=== PATIENT | female | born 1990 | race Caucasian/White ===

== ENCOUNTER → 2017-08-26 | Outpatient (CLI) | payer OTHER ==
[2017-08-26 10:56] LABS: MEAN CORPUSCULAR HGB CONC 32.3 g/dl (32.0-36.5); MEAN CORPUSCULAR VOLUME 86.8 fl (80.0-96.0); PLATELET COUNT, AUTOMATED 272 10^3/uL (150-450); RED CELL DISTRIBUTION WIDTH 13.8 % (11.5-14.5); WHITE BLOOD COUNT 6.6 10^3/uL (4.0-10.0)
[2017-08-26 11:25] LABS: ALBUMIN 3.4 GM/DL (3.2-5.2); ALBUMIN/GLOBULIN RATIO 0.79 (1.00-1.93); ALKALINE PHOSPHATASE 83 U/L (45-117); ALT/SGPT 24 U/L (12-78); ANION GAP 6 MEQ/L (8-16); AST/SGOT 13 U/L (7-37); BILIRUBIN,TOTAL 0.6 MG/DL (0.2-1.0); BLOOD UREA NITROGEN 9 MG/DL (7-18); CALCIUM LEVEL 8.8 MG/DL (8.5-10.1); CARBON DIOXIDE LEVEL 30 MEQ/L (21-32); CHLORIDE LEVEL 105 MEQ/L (98-107); CHOLESTEROL LEVEL 147 MG/DL (<200); CREATININE FOR GFR 0.82 MG/DL (0.55-1.02); FERRITIN 22 NG/ML (8-252); GLOMERULAR FILTRATION RATE > 60.0 (>60); GLUCOSE, FASTING 91 MG/DL (70-105); PERCENT SATURATION 25.9 % (13.2-45.0); POTASSIUM SERUM 4.2 MEQ/L (3.5-5.1); SODIUM LEVEL 141 MEQ/L (136-145); TOTAL IRON BINDING CAPACITY 274 UG/DL (250-450); TOTAL PROTEIN 7.7 GM/DL (6.4-8.2); TRIGLYCERIDES LEVEL 137 MG/DL (<150)
== END ==
LOC: M LAB 09:45
PROVIDERS: ATTEND Family Medicine
DX: E61.1 Iron deficiency (principal); E11.9 Type 2 diabetes mellitus without complications

== ENCOUNTER → 2017-09-01 | Outpatient (CLI) | payer OTHER ==
--- NOTE | 2017-09-01 13:51 | REP ---
Left knee six views : There is no fracture or dislocation. Mineralization and joint spaces are normal. There are no calcifications or foreign bodies. Impression: Negative left knee . Signed by Duarte Silva MD 09/01/2017 01:43 P
== END ==
LOC: M WUC 11:53
PROVIDERS: ATTEND Family Medicine
DX: M25.562 Pain in left knee (principal)

== ENCOUNTER → 2018-09-21 | Outpatient (CLI) | payer OTHER ==
[2018-09-21 10:33] LABS: BASO % 0.4 % (0.0-1.0); EOS # 0.1 10^3/uL (0.0-0.50); EOS % 0.9 % (0.0-3.0); HEMATOCRIT 38.4 % (36.0-47.0); HEMOGLOBIN 12.6 g/dl (12.0-15.5); LYMPH # 2.2 10^3/uL (1.5-6.5); MEAN CORPUSCULAR HGB CONC 32.8 g/dl (32.0-36.5); MEAN CORPUSCULAR VOLUME 88.3 fl (80.0-96.0); MONO # 0.4 10^3/uL (0.0-0.8); MONO % 6.5 % (0.0-5.0); NEUTROPHILS % 59.1 % (36.0-66.0); PLATELET COUNT, AUTOMATED 297 10^3/uL (150-450); RED BLOOD COUNT 4.35 10^6/uL (4.00-5.40); WHITE BLOOD COUNT 6.8 10^3/uL (4.0-10.0)
[2018-09-21 11:05] LABS: ALBUMIN 3.3 GM/DL (3.2-5.2); ALT/SGPT 36 U/L (12-78); BILIRUBIN,TOTAL 0.7 MG/DL (0.2-1.0); BLOOD UREA NITROGEN 9 MG/DL (7-18); CALCIUM LEVEL 8.7 MG/DL (8.5-10.1); CARBON DIOXIDE LEVEL 29 MEQ/L (21-32); CHLORIDE LEVEL 103 MEQ/L (98-107); CHOLESTEROL LEVEL 187 MG/DL (<200); CHOLESTEROL RISK RATIO 4.921 (<5); CREATININE FOR GFR 0.82 MG/DL (0.55-1.30); FERRITIN 28 NG/ML (8-252); FREE T3 3.1 PG/ML (2.2-4.0); FREE T4 1.12 NG/DL (0.76-1.46); GLOMERULAR FILTRATION RATE > 60.0 (>60); GLUCOSE, FASTING 105 MG/DL (70-100); HDL CHOLESTEROL 38 MG/DL (>40); IRON (FE) 56 UG/DL (50-170); LDL CHOLESTEROL 126 MG/DL (<100); NON-HDL-C 149 MG/DL; PERCENT SATURATION 20.9 % (13.2-45.0); POTASSIUM SERUM 3.9 MEQ/L (3.5-5.1); SODIUM LEVEL 139 MEQ/L (136-145); TOTAL IRON BINDING CAPACITY 268 UG/DL (250-450); TOTAL PROTEIN 7.5 GM/DL (6.4-8.2); TRIGLYCERIDES LEVEL 114 MG/DL (<150)
[2018-09-21 11:09] LABS: HEMOGLOBIN A1c 5.4 %
== END ==
LOC: M LAB 09:48
PROVIDERS: ATTEND Family Medicine
DX: E61.1 Iron deficiency (principal); E03.9 Hypothyroidism, unspecified; E11.9 Type 2 diabetes mellitus without complications

== ENCOUNTER → 2019-01-13 | Outpatient (REF) | payer OTHER | LOC: M SFHCWAGY 14:01 | PROVIDERS: ATTEND Nurse Practitioner Women's Health | DX: Z12.4 Encounter for screening for malignant neoplasm of cervix (principal) ==

== ENCOUNTER → 2019-02-14 | Outpatient (REF) | payer OTHER ==
[2019-02-14 16:30] LABS: BLOOD UREA NITROGEN 8 MG/DL (7-18); CARBON DIOXIDE LEVEL 32 MEQ/L (21-32); CHLORIDE LEVEL 103 MEQ/L (98-107); CREATININE FOR GFR 0.83 MG/DL (0.55-1.30); GLOMERULAR FILTRATION RATE > 60.0 (>60); GLUCOSE, FASTING 122 MG/DL (70-100); POTASSIUM SERUM 3.9 MEQ/L (3.5-5.1); SODIUM LEVEL 139 MEQ/L (136-145)
== END ==
LOC: M SFHCWAGY 13:24
PROVIDERS: ATTEND Nurse Practitioner Women's Health
DX: Z01.812 Encounter for preprocedural laboratory examination (principal)

== ENCOUNTER → 2019-02-15 | Outpatient (CLI) | payer OTHER | LOC: M RAD 09:55 | PROVIDERS: ATTEND Nurse Practitioner Women's Health | DX: Z15.01 Genetic susceptibility to malignant neoplasm of breast (principal) ==

== ENCOUNTER → 2019-03-14 | Outpatient (CLI) | payer OTHER ==
--- NOTE | 2019-03-14 14:25 | REPMRS ---
Patient History The patient states she had a clinical breast exam in 01/2019. Baseline Mammogram Patient is nulliparous. Family history of endometrial cancer at age 50 or over in paternal aunt, pancreatic cancer at age 61 in paternal uncle, breast cancer at age 65 in paternal aunt, colorectal cancer at age 56 in paternal aunt, endometrial cancer at age 23 in paternal aunt, breast cancer in maternal grandmother, breast cancer at age 59 in mother, breast cancer at age 45 in maternal aunt. Digital Woman Screen Mammo: March 14, 2019 - Exam #: [id number] Bilateral CC and MLO view(s) were taken. Technologist: Faye Parmar, Technologist No prior studies available for comparison. FINDINGS: The breast tissue is almost entirely fat. There is an asymmetric density at approximate 12 o'clock in the left breast. On the tomography and standard mammographic views, a portion of this shows spiculated margin. This area merits further evaluation. There is no other evidence of dominant mass, architectural distortion, or clustered microcalcification typical of malignancy. 3-D tomosynthesis shows no additional findings. Assessment: BI-RADS/ACR category 0 mammogram, Incomplete: Need additional imaging evaluation and/or prior mammograms for comparison. Recommendation Ultrasound and special view mammogram of the left breast. This patient's Lifetime Breast Cancer RIsk is estimated at 37.3 %. Annual screening Breast MRI scanniing is recommended for patient's whose lifetime risk assessment is over 20%. This mammogram was interpreted with the aid of an FDA-approved computer-aided dectection system. Electronically Signed By: Jame Dominguez MD 03/14/19 [id number]
== END ==
LOC: M WHC 11:14
PROVIDERS: ATTEND Nurse Practitioner Women's Health
DX: Z12.31 Encounter for screening mammogram for malignant neoplasm of breast (principal); Z15.01 Genetic susceptibility to malignant neoplasm of breast; Z80.3 Family history of malignant neoplasm of breast

== ENCOUNTER → 2019-03-16 | Outpatient (CLI) | payer OTHER ==
--- NOTE | 2019-03-16 16:51 | REP ---
Digital diagnostic unilateral left breast mammography with CAD and focused left breast sonography: History: Screening mammography from March 14, 2019 was BIRADS category 0 because of an asymmetric density with spiculated margins at approximately 12 o'clock position in the left breast. Diagnostic imaging was recommended. The patient reports a positivity for a genetic susceptibility marker for malignancy. Positive family history. Elevated Tyrer Cuzick score 37.3% lifetime breast cancer risk assessment. Mammographic findings: Magnified focal spot compression CC, MLO, and mediolateral views of the left breast confirm the presence of an ill-defined asymmetric density at approximately 12 o'clock in the left breast spanning roughly 3.7 cm in greatest diameter. No other suspicious mammographic findings. Sonographic findings: The left breast is scanned from 11 o'clock to 1 o'clock. Fairly homogeneous fibroglandular background echotexture is seen. No sonographically suspicious finding. Impression: BIRADS category is felt to be best assigned as category 4 suspicious left breast imaging. Irregular asymmetric density 12 o'clock position left breast with 3-D tomography showing somewhat spiculated margins. Histologic sampling is recommended. Stereotactic needle biopsy is recommended. BIRADS 4: BI-RADS/ACR category 4 mammogram. Suspicious Abnormality - biopsy should be considered. This mammogram was interpreted with the aid of an FDA-approved computer-aided detection system. The patient states she had a clinical breast exam in January 2019. The patient letter being requested is m#4. This patient's estimated Tyrer-Cuzick lifetime risk assessment for the breast cancer is 37%. Enhanced screening in the form of annual bilateral breast MRI scanning is warranted. Bilateral breast MRI scanning is recommended annually, beginning 6 months from now. . . Electronically Signed by Alessandro Dominguez MD 03/17/2019 07:57 A
== END ==
LOC: M RAD 13:49
PROVIDERS: ATTEND Nurse Practitioner Women's Health
DX: R92.2 Inconclusive mammogram (principal); Z15.01 Genetic susceptibility to malignant neoplasm of breast; Z80.3 Family history of malignant neoplasm of breast

== ENCOUNTER → 2019-04-03 | Outpatient (CLI) | payer OTHER ==
[~2019-04-03] MED LIST: AMIT25TA PO; CVS1CHW13 PO; LEVO88TA3 PO; LIDOCAINE 1% MDV 20ML VIAL As Ordered ONE; PROBCAP17 PO
--- NOTE | 2019-04-03 14:28 | REP ---
POSTBIOPSY MAMMOGRAM, LEFT BREAST: Postbiopsy mammogram, left breast performed in the ML and CC projections following stereotactic biopsy of a spiculated density in the upper left breast. A metallic clip is seen at the site of the biopsy. This corresponds to the region of the abnormality seen on the prior mammograms performed 03/14/2019 and 03/16/2019. Electronically Signed by Duarte Chamorro MD 04/03/2019 04:36 P
[2019-04-03 15:15] VITALS: BP 133/66
--- NOTE | 2019-04-03 16:44 | REP ---
Stereotactic breast biopsy. This procedure is performed by ANA Hunt, under the personal supervision of Dr. Chamorro. The patient has a history of an asymmetric density at approximately 12 o'clock in the left breast on the mammogram dated 03/14/2019. The risks and benefits of the procedure were explained to the patient and informed consent was obtained both verbally and written. Directly prior to the start of the procedure, a formal timeout was done in the procedure room. The lateral medial approach was utilized. The calcifications were localized using stereotactic mammographic guidance. 4 ml of 1% lidocaine was used as a local anesthetic. And 8-gauge, suction assisted Mammotome needle was inserted and 7 core biopsy samples were obtained. Specimen radiograph demonstrate the presence of microcalcifications to be within the specimen. A marker clip was placed at the biopsy site. The needle was removed and homeostasis was achieved. The patient tolerated the procedure well and there were no immediate complications. After the appropriate amount of monitored convalescence, the patient was discharged from the department. Impression: Technically successful stereotactic breast biopsy Reviewed by ANA Razo 04/03/2019 02:56 P Electronically Signed by Duarte Chamorro MD 04/03/2019 04:35 P
== END ==
LOC: M IRPRO 12:23
PROVIDERS: ATTEND Physician Assistant
DX: N63.20 Unspecified lump in the left breast, unspecified quadrant (principal)

== ENCOUNTER → 2019-10-23 | Outpatient (CLI) | payer OTHER ==
[~2019-10-23] MED LIST changes: -LIDOCAINE 1% MDV 20ML VIAL As Ordered ONE
[2019-10-23 09:13] LABS: HEMATOCRIT 40.4 % (36.0-47.0); HEMOGLOBIN 12.9 g/dl (12.0-15.5); MEAN CORPUSCULAR HEMOGLOBIN 28.4 pg (27.0-33.0); MEAN CORPUSCULAR HGB CONC 31.9 g/dl (32.0-36.5); MEAN CORPUSCULAR VOLUME 88.8 fl (80.0-96.0); PLATELET COUNT, AUTOMATED 294 10^3/uL (150-450); RED BLOOD COUNT 4.55 10^6/uL (4.00-5.40); WHITE BLOOD COUNT 7.6 10^3/uL (4.0-10.0)
[2019-10-23 09:43] LABS: ALBUMIN 3.5 GM/DL (3.2-5.2); ALT/SGPT 33 U/L (12-78); BILIRUBIN,TOTAL 0.7 MG/DL (0.2-1.0); BLOOD UREA NITROGEN 6 MG/DL (7-18); CALCIUM LEVEL 8.5 MG/DL (8.5-10.1); CARBON DIOXIDE LEVEL 26 MEQ/L (21-32); CHLORIDE LEVEL 106 MEQ/L (98-107); CHOLESTEROL LEVEL 159 MG/DL (<200); CHOLESTEROL RISK RATIO 4.818 (<5); CREATININE FOR GFR 0.86 MG/DL (0.55-1.30); FREE T3 2.7 PG/ML (2.2-4.0); FREE T4 1.33 NG/DL (0.76-1.46); GLOMERULAR FILTRATION RATE > 60.0 (>60); GLUCOSE, FASTING 108 MG/DL (70-100); HDL CHOLESTEROL 33 MG/DL (>40); LDL CHOLESTEROL 95 MG/DL (<100); NON-HDL-C 126 MG/DL; POTASSIUM SERUM 4.1 MEQ/L (3.5-5.1); SODIUM LEVEL 140 MEQ/L (136-145); TOTAL PROTEIN 7.9 GM/DL (6.4-8.2); TRIGLYCERIDES LEVEL 157 MG/DL (<150)
== END ==
LOC: M LAB 08:21
PROVIDERS: ATTEND Family Medicine
DX: E03.9 Hypothyroidism, unspecified (principal); E11.9 Type 2 diabetes mellitus without complications

== ENCOUNTER → 2019-12-01 | Outpatient (CLI) | payer OTHER ==
--- NOTE | 2019-12-01 10:09 | REP ---
Digital diagnostic unilateral left breast mammography with CAD, 3-D tomography, and focused left breast sonography. History: Lump in the left breast at 12 o'clock position. The patient stated she could not feel this. The patient is status post stereotactic needle biopsy procedure for asymmetric density left breast in April 03, 2019. This produced histologic diagnosis of benign fibrocystic tissue. Comparison mammography March 14, 2019, March 16, 2019, and April 03, 2019. Comparison sonography March 16, 2019. Mammographic findings: There is an asymmetric density again noted at 12 o'clock position in the left breast. There is a marker clip centrally located in this asymmetric density from the previous biopsy. There is a small nodule surrounding the marker clip and there is some adjacent linear fibrotic reaction. The study post biopsy on April 03, 2019 showed a 2 cm hematoma at the biopsy site. The asymmetric density appears a little more prominent mammographically but this is likely due to post biopsy fibrotic changes. No mass-like properties or definite spiculation is seen. The remainder of the left breast parenchyma is unremarkable and unchanged. Sonographic findings: Sonography in the 12 o'clock position of the left breast visualizes the previously placed clip. There is an anechoic cylindrical shaped area adjacent to the clip consistent with the biopsy site and postbiopsy hematoma seroma. This measures 9 x 3 mm. No other sonographic findings. Impression: BIRADS 2: BI-RADS/ACR category 2 mammogram. Benign Findings. The previously biopsied benign asymmetric density at 12 o'clock position in the left breast is again seen with post biopsy changes visible both sonographically and mammographically. BIRADS category 2 benign findings. Clinical followup is advised. This mammogram was interpreted with the aid of an FDA-approved computer-aided detection system. The patient states she had a clinical breast exam in November 2019. This [facility]'s [facility] for breast cancer is 37.[facility] %. Enhanced screening in the form of annual bilateral breast MRI scanning is warranted. Bilateral breast MRI scanning is recommended annually, beginning 6 months from now.
== END ==
LOC: M WHC 07:37
PROVIDERS: ATTEND Surgery
DX: N63.20 Unspecified lump in the left breast, unspecified quadrant (principal); M96.840 Postprocedural hematoma of a musculoskeletal structure following a musculoskeletal system procedure
CPT/HCPCS: 76642; 77065; G0279

== ENCOUNTER → 2020-02-01 | Outpatient (CLI) | payer OTHER ==
[~2020-02-01] MED LIST changes: +ULTR50TA8 PO
--- NOTE | 2020-02-01 08:02 | REP ---
CHEST X-RAY: Two views. HISTORY: Encounter for preprocedural exam. No comparison chest x-ray. FINDINGS: The lungs are symmetrically aerated and clear. Pleural angles are sharp. Heart is not enlarged. Pulmonary vasculature is not increased. There is a levoconvex curvature in the lower thoracic spine. No other bony abnormality is seen. IMPRESSION: Thoracic scoliotic curvature. Otherwise no active disease. Electronically Signed by Alessandro Dominguez MD 02/01/2020 08:43 A
[2020-02-01 08:03] LABS: HEMATOCRIT 39.7 % (36.0-47.0); MEAN CORPUSCULAR HEMOGLOBIN 28.8 pg (27.0-33.0); MEAN CORPUSCULAR HGB CONC 32.7 g/dl (32.0-36.5); MEAN CORPUSCULAR VOLUME 87.8 fl (80.0-96.0); PLATELET COUNT, AUTOMATED 322 10^3/uL (150-450); RED BLOOD COUNT 4.52 10^6/uL (4.00-5.40); WHITE BLOOD COUNT 8.1 10^3/uL (4.0-10.0)
[2020-02-01 08:17] LABS: ALBUMIN 3.2 GM/DL (3.2-5.2); ALT/SGPT 36 U/L (12-78); BILIRUBIN,TOTAL 0.8 MG/DL (0.2-1.0); BLOOD UREA NITROGEN 10 MG/DL (7-18); CALCIUM LEVEL 8.8 MG/DL (8.5-10.1); CARBON DIOXIDE LEVEL 30 MEQ/L (21-32); CHLORIDE LEVEL 103 MEQ/L (98-107); GLOMERULAR FILTRATION RATE > 60.0 (>60); GLUCOSE, FASTING 104 MG/DL (70-100); POTASSIUM SERUM 3.7 MEQ/L (3.5-5.1); SODIUM LEVEL 138 MEQ/L (136-145); TOTAL PROTEIN 8.1 GM/DL (6.4-8.2)
--- NOTE | 2020-02-01 18:13 | ECGEPIP ---
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
== END ==
LOC: M LAB 07:16
PROVIDERS: ATTEND Family Medicine
DX: Z01.818 Encounter for other preprocedural examination (principal)

== ENCOUNTER → 2020-02-08 | Outpatient (CLI) | payer OTHER ==
[2020-02-08 14:19] VITALS: BP 110/74
--- NOTE | 2020-02-09 11:52 | REP ---
STEREOTACTIC NEEDLE LOCALIZATION PROCEDURE WITH HYDROMARK CLIP PLACEMENT LEFT BREAST AND DIGITAL DIAGNOSTIC UNILATERAL LEFT BREAST MAMMOGRAPHY CLIP PLACEMENT VIEWS: HISTORY: Left breast mass. Comparison mammography December 01, 2019. STEREOTACTIC NEEDLE BIOPSY PROCEDURE: Informed consent and the localization portion of the procedure were performed by ANA Moncada. The patient was positioned on the prone stereotactic biopsy table and the left breast was positioned and compressed in the craniocaudal projection. The previously placed metallic needle biopsy marker clip was localized stereotactically and a HydroMARK needle was introduced under local anesthetic and aseptic precautions into the left breast. After stereotactic imaging, the HydroMARK was deployed and post deployment stereotactic imaging was performed. The patient tolerated the procedure well. True MLO and CC mammographic digital views are obtained post clip placement. The new HydroMARK clip is seen at 12-o'clock position in the left breast along the superficial margin of the mammographic opacity. The original metallic clip marker is 1 cm deep to the mammographic opacity. No hematoma is seen. IMPRESSION: HydroMARK clip in good position relative to the density in the left breast.
== END ==
LOC: M WHCPRO 09:26
PROVIDERS: ATTEND Surgery
DX: N63.20 Unspecified lump in the left breast, unspecified quadrant (principal)

== ENCOUNTER → 2020-02-10 | Outpatient (CLI) | payer OTHER | LOC: M LABSMTC 08:31 | PROVIDERS: ATTEND Anesthesiology | DX: Z01.818 Encounter for other preprocedural examination (principal); Z11.59 Encounter for screening for other viral diseases ==

== ENCOUNTER 2020-02-13 07:19 | Day surgery (SDC) | payer OTHER ==
[~2020-02-13] VITALS: Ht 167.6 cm; Wt 155.1 kg
[~2020-02-13 07:19] MED LIST changes: -ULTR50TA8 PO
[2020-02-13] MEDS ORDERED: fentaNYL 100 MCG/2 ML INJECTION (J3010) As Ordered ONE ×3 (08:23→11:50)
[2020-02-13] MEDS ORDERED: LIDOCAINE 2% 100MG/5ML SDV (FOR ANES.) As Ordered ONE (08:23)
[2020-02-13] MEDS ORDERED: propofoL 200 MG/20 ML VIAL As Ordered ONE (08:23)
[2020-02-13] MEDS ORDERED: MIDAZOLAM INJ 2MG/2ML VIAL (J2250 PER 1MG) As Ordered ONE (08:24)
[2020-02-13] MEDS ORDERED: ceFAZolin SOD 2 GM in IV 1 EA IV ONE (08:30)
[2020-02-13] MEDS ORDERED: NS 1,000 ML IV ONE (08:45)
[2020-02-13] MEDS ORDERED: HEPARIN SOD (PORCINE) 5000UNITS/ML VIAL (J1644 PER 1000UNITS) SQ ONE (08:45)
[2020-02-13] MEDS ORDERED: ceFAZolin SOD 1 GM in D5W MINI-BAG PLUS 50 ML IV ONE (09:10)
[2020-02-13] MEDS ORDERED: BUPIVACAINE HCL 0.25% 30ML VIAL As Ordered ONE (09:24)
[2020-02-13] MEDS ORDERED: LIDOCAINE 1% SDV 30ML VIAL As Ordered ONE (09:24)
[2020-02-13] MEDS ORDERED: SCOPOLAMINE 1MG TRANSDERMAL PATCH As Ordered ONE (09:34)
[2020-02-13] MEDS ORDERED: SCOPOLAMINE 1MG TRANSDERMAL PATCH TOP ONE ×2 (09:45→12:45)
[2020-02-13] MEDS ORDERED: LR 1,000 ML IV ONE (09:45)
[2020-02-13] MEDS ORDERED: DESFLURANE 240 ML INHALANT As Ordered ONE (10:10)
[2020-02-13] MEDS ORDERED: ACETAMINOPHEN 1000MG 100ML IV BTL (OFIRMEV) (J0131 PER 10MG) As Ordered ONE (10:15)
[2020-02-13] MEDS ORDERED: KETOROLAC 60 MG/2 ML VIAL As Ordered ONE (10:15)
[2020-02-13] MEDS ORDERED: ONDANSETRON 4MG/2ML VIAL As Ordered ONE (10:15)
[2020-02-13] MEDS ORDERED: diphenhydrAMINE 50MG/ML VIAL (J1200) As Ordered ONE (10:15)
[2020-02-13] MEDS ORDERED: METOCLOPRAMIDE INJ 10MG/2ML VIAL (J2765 PER 1) As Ordered ONE (10:15)
[2020-02-13] MEDS ORDERED: ULTR50TA8 PO (12:22)
[2020-02-13] MEDS ORDERED: HYDROMORPHONE HCL 0.5 MG/ 0.5 ML SYRINGE (J1170 PER 1) IV PRN (12:45)
[2020-02-13] MEDS ORDERED: fentaNYL 100 MCG/2 ML INJECTION (J3010) IV PRN (12:45)
[2020-02-13] MEDS ORDERED: LR 1,000 ML IV SCH (12:45)
[2020-02-13] MEDS ORDERED: ONDANSETRON 4MG/2ML VIAL IV PRN (12:45)
[2020-02-13] MEDS ORDERED: oxyCODONE 5MG TAB PO PRN (12:45)
--- NOTE | 2020-02-13 13:59 | REP ---
FOCUSED LEFT BREAST SONOGRAPHY: Ultrasound guidance. HISTORY: Needle wire localization. FINDINGS: Sonographic guidance is provided Dr. Alegria who performed wire placement localization HydroMARK clip placement procedure. Electronically Signed by Alessandro Dominguez MD 02/13/2020 05:58 P
[2020-02-13 14:45] VITALS: BP 120/77
--- NOTE | 2020-02-14 10:56 | ROOPDOC ---
[facility] Report Of Operation Report of Operation DATE OF PROCEDURE: 02/13/20 PREPROCEDURE DIAGNOSES: Left breast density and PALB2 mutation POSTPROCEDURE DIAGNOSES: Left breast density and PALB2 mutation PROCEDURE: Left breast excisional biopsy with Intra-Op wire placement 2 SURGEON: Matheus Sandoval FERRY OPERATOR: ANESTHESIA: Gen. anesthetic was used. ESTIMATED BLOOD LOSS: Approximately 5 mL. COMPLICATIONS: None. REMARKS: Both wires and CLIP were noted in the specimen. Hydromark clip was placed on the top of specimen after it was identified in the tissue. It was placed at the site of previously marked suture. DESCRIPTION OF PROCEDURE: INDICATIONS: Ms. Byrne is a 29-year-old woman with clinically significant mutation in PALB2 gene and significant family history of breast cancer, who was found to have a suspicious left breast density on mammogram in 2019. Biopsy was done and came back benign. Left breast density increased in size on mammogram in 2019. Due to patients risk factors left breast excisional biopsy was recommended. Hydromark clip was placed at the density site to allow intarop wire localization. She was medically cleared for surgery by her primary care doctor. Risks and possible complications of surgical procedure including bleeding, infection and injury to surrounding structures were explained to the patient and she wished to proceed. Consent was signed. My initials were placed on the operative site. Subcutaneous injection of 5000 units of heparin was done in Preop. DETAILS: Patient was taken to the operating room and placed on the operating room table. A sign in was called stating patients name, date of and the procedure to be done. Preoperative antibiotics were infused. Smooth induction of general anesthesia was done. Patients hands were extended on arm rests. Care was taken not to over extend the arms. The pillow was placed under her knees and the feet were elevated to decrease pressure on the heels. Procedure was started with left breast intraop wire localization. Appropriate time out was done and patients name, date of , and the procedure to be done were confirmed. Left breast was cleaned by me. Intraoperative ultrasound was used again to confirm location of the Hydromark clip. Location of the clip was marked on the skin as well. 21 G [employer] Breast Lesion Localization Needle was used to place 25 cm wire. The wire was placed next to the clip and the end of the wire was passed slightly distal to the clip. The images were captured confirming adequate placement of the localizing wire. Date Night Caregiver assisted with the wire placement. There was another clip visible on US from previous biopsy site. This clip was deeper to the lesion on mammogram. Another 21 G [employer] Breast Lesion Localization Needle was used to place 25 cm wire. The wire was placed next to the clip and the end of the wire was passed slightly distal to the clip. The images were captured confirming adequate placement of the localizing wire. Date Night Caregiver assisted with the wire placement. Next, patients left breast and axilla were prepped and draped in the usual fashion. Care was taken not to displace the wire. Appropriate time out was done again prior second part of the procedure. Patients name, date of , and the procedure to be done were confirmed. Next, local anesthetic using 1% lidocaine and 0.25 % Marcaine 50/50 mix was inje cted at the site of planned periareolar incision. The incision was made with the scalpel. Subcutaneous skin flaps were raised and both guide wires were carefully pulled into the wound. Dissection was carries along the wires until the previously marked on the skin area of target lesion location was encountered. At this point, wider excision of the tissue surrounding the wire was done. The Hydromark clip was identified in the tissue with intraoperative hockey stick ultrasound probe. The end of the wire was identified with palpation. Hydromark clip was also localized in the tissue and removed due to concern of being lost. A silk stitch was placed at the site of Hydromark. The excisional biopsy specimen was carefully removed from the breast keeping its proper orientation and moved to the back table where margins were marked with the surgical inking kit following the standard colors recommendations. Specimen was then placed on the grid and placed in [employer] [facility]. The image revealed two wires and the old clip from the original biopsy site. Hydromark clip was placed on the top of specimen at the location previously marked by the suture. The specimen was labeled with patients name and left excisional biopsy and sent to pathology. Next, the wound was irrigated thoroughly and adequate hemostasis was assured. Additional local anesthetic was injected into surrounding tissues. space was approximated with 3-0 Vicryl. The dermis was closed with 3-0 Monocryl and skin was closed with 4-0 Monocryl. Surgical glue was placed over the incision. Patient emerged from the anesthesia without any problems. Fluffs were placed over the operative site and patients chest was wrapped snuggly in the MARCOS wrap. Sponge and instrument counts were done and were correct. Patient tolerated procedure well and was taken to recovery unit in stable condition. MATHEUS SANDOVAL DO February 13, 2020 12:16
--- NOTE | 2020-02-14 11:13 | REP ---
SPECIMEN RADIOGRAPHY LEFT BREAST: HISTORY: Left breast mass. The patient high risk. Genetic mutation. Comparison mammography February 08, 2020. FINDINGS: Specimen radiography demonstrates two [place] needle wire localization devices. There are two previously placed needle biopsy marker clips in the specimen as well. IMPRESSION: Specimen radiography demonstrates both previously positioned needle biopsy marker clips. Electronically Signed by Alessandro Dominguez MD 02/14/2020 11:46 A
== END 2020-02-13 14:45 | disposition home or self-care (01) ==
LOC: M SDC 07:19
PROVIDERS: ATTEND Surgery
DX: N60.12 Diffuse cystic mastopathy of left breast (principal); Z15.01 Genetic susceptibility to malignant neoplasm of breast; E11.9 Type 2 diabetes mellitus without complications; G47.33 Obstructive sleep apnea (adult) (pediatric); E03.9 Hypothyroidism, unspecified; Z79.899 Other long term (current) drug therapy; Z91.018 Allergy to other foods
CPT/HCPCS: 19125; 19126; 36415; 76942; 81025; 86850; 86900; 86901; 88305; J0131; J0690; J1200; J1644; J1885; J2250; J2405; J2765; J3010

== ENCOUNTER → 2020-03-15 | Outpatient (CLI) | payer OTHER ==
[~2020-03-15] MED LIST changes: +ULTR50TA8 PO
--- NOTE | 2020-03-15 08:40 | REPMRS ---
Patient History Patient is nulliparous. Patient had tested positive for PALB2. Family history of endometrial cancer at age 50 or over in paternal aunt, pancreatic cancer at age 61 in paternal uncle, breast cancer at age 65 in paternal aunt, colorectal cancer at age 57 in paternal aunt, endometrial cancer at age 23 in paternal aunt, breast cancer in maternal grandmother, breast cancer at age 59 in mother, breast cancer at age 45 in maternal aunt. Benign radio exam breast specimen of the left breast, February 13, 2020. Benign stereotatic loc for ea lesion of the left breast, April 03, 2019. Diagnostic Unilateral Mammo: Right Breast - March 15, 2020 - Exam #: [id number] CC and MLO view(s) were taken of the right breast. Technologist: Rosa Plummer, Technologist Prior study comparison: February 08, 2020, left breast diagnostic unilateral mammo performed at [facility]. March 14, 2019, bilateral digital woman screen mammo performed at [facility]. FINDINGS: The breast tissue is almost entirely fat. The Volpara volumetric breast density category is: A . There has been no change in the appearance of the right breast parenchyma in the interval since the prior examination. No mass, architectural distortion, or microcalcific grouping has developed. No suspicious finding. 3-D tomosynthesis shows no additional findings. Assessment: BI-RADS/ACR category 1 mammogram. Negative Mammogram. Recommendation Breast MRI of both breasts in 6 months. Routine screening mammogram of both breasts in 1 year. This patient's Lifetime Breast Cancer RIsk is estimated at 37.3 %. Annual screening Breast MRI scanniing is recommended for patient's whose lifetime risk assessment is over 20%. This mammogram was interpreted with the aid of an FDA-approved computer-aided dectection system. Electronically Signed By: Jaem Dominguez MD 03/15/20 0839
--- NOTE | 2020-03-15 11:13 | REP ---
BILATERAL BREAST ULTRASOUND: Real-time sonographic evaluation of bilateral breasts performed. Patient has had a recent lumpectomy, 02/13/2020 at 12-o'clock location, left breast. This is a whole breast bilateral ultrasound for screening. No sonographic abnormality is seen in the right breast. In the left breast at 12-o'clock position at the site of the prior lumpectomy, there is an ill-defined area of fluid measuring 1.0 x 2.1 x 1.9 cm. This is compatible with a small amount of postoperative hematoma/seroma. No cystic or solid nodule is seen in the left breast. IMPRESSION: ACR 2 benign. No cystic or solid mass seen on this bilateral whole breast ultrasound. Small amount of fluid is seen at the lumpectomy site, 12-o'clock position left breast, approximately 1 month following lumpectomy. This is compatible with a small amount of postoperative hematoma/seroma, measuring 1.0 x 2.1 x 1.9 cm.
== END ==
LOC: M WHC 07:45
PROVIDERS: ATTEND Surgery
DX: Z12.31 Encounter for screening mammogram for malignant neoplasm of breast (principal); Z15.01 Genetic susceptibility to malignant neoplasm of breast; Z80.49 Family history of malignant neoplasm of other genital organs; Z80.0 Family history of malignant neoplasm of digestive organs; Z80.3 Family history of malignant neoplasm of breast
CPT/HCPCS: 76641; 77065; G0279

== ENCOUNTER → 2020-10-08 | Outpatient (CLI) | payer OTHER ==
[~2020-10-08] MED LIST changes: -AMIT25TA PO; +AMIT25TA17 PO
[2020-10-08 09:26] LABS: HEMATOCRIT 40.4 % (36.0-47.0); MEAN CORPUSCULAR HEMOGLOBIN 28.9 pg (27.0-33.0); MEAN CORPUSCULAR HGB CONC 32.2 g/dl (32.0-36.5); MEAN CORPUSCULAR VOLUME 89.8 fl (80.0-96.0); PLATELET COUNT, AUTOMATED 335 10^3/uL (150-450); WHITE BLOOD COUNT 8.2 10^3/uL (4.0-10.0)
[2020-10-08 10:09] LABS: ALBUMIN 3.5 GM/DL (3.2-5.2); ALT/SGPT 38 U/L (12-78); BILIRUBIN,TOTAL 0.7 MG/DL (0.2-1.0); BLOOD UREA NITROGEN 9 MG/DL (7-18); CALCIUM LEVEL 9.9 MG/DL (8.5-10.1); CARBON DIOXIDE LEVEL 28 MEQ/L (21-32); CHLORIDE LEVEL 102 MEQ/L (98-107); CREATININE FOR GFR 0.88 MG/DL (0.55-1.30); FERRITIN 33 NG/ML (8-252); FREE T3 2.8 PG/ML (2.2-4.0); FREE T4 1.14 NG/DL (0.76-1.46); GLOMERULAR FILTRATION RATE > 60.0 (>60); GLUCOSE, FASTING 97 MG/DL (70-100); IRON (FE) 51 UG/DL (50-170); PERCENT SATURATION 18.1 % (13.2-45.0); POTASSIUM SERUM 3.9 MEQ/L (3.5-5.1); SODIUM LEVEL 137 MEQ/L (136-145); TOTAL IRON BINDING CAPACITY 281 UG/DL (250-450); TOTAL PROTEIN 8.1 GM/DL (6.4-8.2)
[2020-10-08 10:25] LABS: HEMOGLOBIN A1c 5.4 %
== END ==
LOC: M LAB 08:39
PROVIDERS: ATTEND Family Medicine
DX: E03.9 Hypothyroidism, unspecified (principal); D50.9 Iron deficiency anemia, unspecified

== ENCOUNTER → 2021-03-17 | Outpatient (CLI) | payer OTHER ==
--- NOTE | 2021-03-17 10:26 | REPMRS ---
Patient History The patient states she has not had a clinical breast exam in over a year. Patient had tested positive for PALB2. Family history of endometrial cancer at age 50 or over in paternal aunt, pancreatic cancer at age 61 in paternal uncle, breast cancer at age 65 in paternal aunt, colorectal cancer at age 57 in paternal aunt, endometrial cancer at age 23 in paternal aunt, breast cancer in maternal grandmother, breast cancer at age 59 in mother, breast cancer at age 45 in maternal aunt. Benign radio exam breast specimen of the left breast, February 13, 2020. Benign stereotatic loc for ea lesion of the left breast, April 03, 2019. Patient states no breast complaints today. Patient has signed MRS History Sheet. Digital Woman Screen Mammo: March 17, 2021 - Exam #: [id number] Bilateral CC and MLO view(s) were taken. Technologist: Technologist Gerber Prior study comparison: March 15, 2020, right breast diagnostic unilateral mammo performed at [facility]. February 08, 2020, left breast diagnostic unilateral mammo performed at [facility]. March 14, 2019, bilateral digital woman screen mammo performed at [facility]. FINDINGS: The breast tissue is almost entirely fat. The Volpara volumetric breast density category is: A. There has been no change in the appearance of the mammogram from the prior studies. There is no interval development of dominant mass, architectural distortion, or grouped microcalcification typical of malignancy. 3-D tomosynthesis shows no additional findings. Assessment: BI-RADS/ACR category 1 mammogram. Negative Mammogram. Recommendation Breast MRI of both breasts in 6 months. Routine screening mammogram of both breasts in 1 year (for women over age 40). This patient's [facility] Lifetime Breast Cancer RIsk is estimated at 37.2 %. Patients whose estimated lifetime breast cancer risk assessment is greater than 20% merit annual screening breast MRI scanning in addition to annual mammography. This mammogram was interpreted with the aid of an FDA-approved computer-aided dectection system. Electronically Signed By: Jame Dominguez MD 03/17/21 [id number]
--- NOTE | 2021-03-17 11:39 | REP ---
INDICATION: HIGH RISK PT/Z12.39/Z15.01 GENETIC SUSCEPTIB TO MALIG NEOPLA. Patient is status post lumpectomy left breast 12 o'clock position benign result. COMPARISON: Comparison is made with today's mammography.. TECHNIQUE: Bilateral whole breast sonography. Screening study. FINDINGS: Bilateral whole breast sonography demonstrates homogeneous fatty background echotexture. No abnormality noted on the right. On the left at the 12 o'clock position, 4.8 cm from the nipple, there is a 3.7 x 1.2 x 1.6 cm isoechoic area with some fluid surrounding it consistent with fat necrosis. This corresponds with a fatty lobular density seen at the biopsy site on mammography. This has low K PA numbers on shear wave elastography. No other abnormality is noted in the left breast. IMPRESSION: BI-RADS category 2 benign findings. Area of postoperative fat necrosis seen at 12 o'clock position in the left breast. This corresponds to a fatty lobule visible on mammography. <Electronically signed by Jame Dominguez > 03/17/21 [id number]
== END ==
LOC: M WHC 09:47
PROVIDERS: ATTEND Surgery
DX: Z12.31 Encounter for screening mammogram for malignant neoplasm of breast (principal); Z15.01 Genetic susceptibility to malignant neoplasm of breast; Z80.42 Family history of malignant neoplasm of prostate; Z80.0 Family history of malignant neoplasm of digestive organs; Z80.3 Family history of malignant neoplasm of breast

== ENCOUNTER → 2021-04-09 | Outpatient (CLI) | payer OTHER ==
[2021-04-09 09:38] LABS: FREE T3 2.5 PG/ML (2.2-4.0); FREE T4 1.2 NG/DL (0.76-1.46); THYROID STIMULATING HORMONE 2.04 uIU/ML (0.358-3.740)
== END ==
LOC: M LAB 08:22
PROVIDERS: ATTEND Family Medicine
DX: E03.9 Hypothyroidism, unspecified (principal)

== ENCOUNTER → 2022-02-19 | Outpatient (CLI) | payer OTHER | LOC: M WHC 10:39 | PROVIDERS: ATTEND Nurse Practitioner Women's Health | DX: N64.1 Fat necrosis of breast (principal); N60.11 Diffuse cystic mastopathy of right breast | CPT/HCPCS: 76642; 77066; G0279 ==

== ENCOUNTER → 2022-03-27 | Outpatient (CLI) | payer OTHER | LOC: M WHC 08:07 | PROVIDERS: ATTEND Nurse Practitioner Women's Health | DX: Z53.9 Procedure and treatment not carried out, unspecified reason (principal) ==

== ENCOUNTER → 2022-04-03 | Outpatient (CLI) | payer OTHER ==
[2022-04-03 11:06] LABS: HEMATOCRIT 38.8 % (36.0-47.0); HEMOGLOBIN 12.5 g/dl (12.0-15.5); MEAN CORPUSCULAR HGB CONC 32.2 g/dl (32.0-36.5); MEAN CORPUSCULAR VOLUME 86.8 fl (80.0-96.0); PLATELET COUNT, AUTOMATED 296 10^3/uL (150-450); RED BLOOD COUNT 4.47 10^6/uL (4.00-5.40); WHITE BLOOD COUNT 6.4 10^3/uL (4.0-10.0)
[2022-04-03 11:40] LABS: HEMOGLOBIN A1c 5.3 %
[2022-04-03 11:59] LABS: ALBUMIN 3.5 GM/DL (3.2-5.2); ALT/SGPT 39 U/L (12-78); BILIRUBIN,TOTAL 0.6 MG/DL (0.2-1.0); BLOOD UREA NITROGEN 10 MG/DL (7-18); CALCIUM LEVEL 9.7 MG/DL (8.5-10.1); CARBON DIOXIDE LEVEL 27 MEQ/L (21-32); CHLORIDE LEVEL 105 MEQ/L (98-107); CHOLESTEROL LEVEL 193 MG/DL (<200); CHOLESTEROL RISK RATIO 4.707 (<5); CREATININE FOR GFR 0.69 MG/DL (0.55-1.30); FERRITIN 24 NG/ML (8-252); GLOMERULAR FILTRATION RATE > 60.0 (>60); GLUCOSE, FASTING 94 MG/DL (70-100); HDL CHOLESTEROL 41 MG/DL (>40); IRON (FE) 38 UG/DL (50-170); LDL CHOLESTEROL 134 MG/DL (<100); NON-HDL-C 152 MG/DL; PERCENT SATURATION 12.5 % (13.2-45.0); SODIUM LEVEL 140 MEQ/L (136-145); TOTAL IRON BINDING CAPACITY 305 UG/DL (250-450); TOTAL PROTEIN 7.8 GM/DL (6.4-8.2); TRIGLYCERIDES LEVEL 91 MG/DL (<150)
== END ==
LOC: M LAB 10:16
PROVIDERS: ATTEND Family Medicine
DX: E61.1 Iron deficiency (principal); E11.9 Type 2 diabetes mellitus without complications

== ENCOUNTER → 2022-04-06 | Outpatient (CLI) | payer OTHER | LOC: M LAB 15:30 | PROVIDERS: ATTEND Family Medicine | DX: Z53.9 Procedure and treatment not carried out, unspecified reason (principal) ==

== ENCOUNTER → 2023-02-24 | Outpatient (CLI) | payer OTHER | LOC: M WHC 08:23 | PROVIDERS: ATTEND Nurse Practitioner Women's Health | DX: Z12.31 Encounter for screening mammogram for malignant neoplasm of breast (principal); Z15.01 Genetic susceptibility to malignant neoplasm of breast; N64.1 Fat necrosis of breast ==

== ENCOUNTER → 2023-10-16 | Outpatient (CLI) | payer OTHER, MEDICAID ==
[~2023-10-16] MED LIST changes: -AMIT25TA17 PO; +AMIT25TA19 PO
[2023-10-16 10:30] LABS: BASO % 0.6 % (0.0-1.0); EOS # 0.1 10^3/uL (0.0-0.5); EOS % 1.1 % (0.0-3.0); HEMATOCRIT 38.4 % (36.0-47.0); HEMOGLOBIN 12.3 g/dl (12.0-15.5); LYMPH # 2.2 10^3/uL (1.5-5.0); LYMPH % 34.3 % (24.0-44.0); MEAN CORPUSCULAR HEMOGLOBIN 27.8 pg (27.0-33.0); MEAN CORPUSCULAR VOLUME 86.9 fl (80.0-96.0); MONO # 0.4 10^3/uL (0.0-0.8); MONO % 6.6 % (2.0-8.0); NEUTROPHILS # 3.7 10^3/uL (1.5-8.5); NEUTROPHILS % 57.2 % (36.0-66.0); PLATELET COUNT, AUTOMATED 283 10^3/uL (150-450); RED BLOOD COUNT 4.42 10^6/uL (4.00-5.40); WHITE BLOOD COUNT 6.4 10^3/uL (4.0-10.0)
[2023-10-16 10:54] LABS: HEMOGLOBIN A1c 5.2 % (4.0-6.0)
[2023-10-16 11:03] LABS: ALBUMIN 3.4 G/DL (3.2-5.2); ALKALINE PHOSPHATASE 95 U/L (46-116); ALT/SGPT 32 U/L (7.0-40); AST/SGOT 22 U/L (<34); BLOOD UREA NITROGEN 6 MG/DL (9-23); CALCIUM LEVEL 9.1 MG/DL (8.5-10.1); CARBON DIOXIDE LEVEL 28 MMOL/L (20-31); CHLORIDE LEVEL 107 MMOL/L (98-107); CHOLESTEROL LEVEL 169 MG/DL (<200); CHOLESTEROL RISK RATIO 4.66 (<5); CREATININE FOR GFR 0.72 MG/DL (0.55-1.30); GLOMERULAR FILTRATION RATE > 60.0 (>60); GLUCOSE, FASTING 96 MG/DL (60-100); HDL CHOLESTEROL 36.2 MG/DL (>40); LDL CHOLESTEROL 108.2 MG/DL (<100); NON-HDL-C 132.8 MG/DL; SODIUM LEVEL 136 MMOL/L (136-145); TOTAL PROTEIN 7.5 G/DL (5.7-8.2); TRIGLYCERIDES LEVEL 123 MG/DL (<150)
[2023-10-16 11:04] LABS: THYROID STIMULATING HORMONE 1.392 uIU/ML (0.55-4.78)
[2023-10-16 11:05] LABS: FREE T3 3.2 PG/ML (2.3-4.2); FREE T4 1.83 NG/DL (0.89-1.76)
== END ==
LOC: M LAB 09:57
PROVIDERS: ATTEND Family Medicine
DX: E11.9 Type 2 diabetes mellitus without complications (principal); E03.9 Hypothyroidism, unspecified

== ENCOUNTER → 2025-01-25 | Outpatient (CLI) | payer OTHER, MEDICAID | LOC: M WUC 11:33 | PROVIDERS: ATTEND Physician Assistant | DX: S69.92XA Unspecified injury of left wrist, hand and finger(s), initial encounter (principal); Y93.9 Activity, unspecified; Y92.9 Unspecified place or not applicable ==